=== PATIENT | female | born 1985 | race African-American/Black ===

== ENCOUNTER 2018-03-25 12:36 | Emergency (ER) | payer OTHER ==
[~2018-03-25] VITALS: Ht 165.1 cm; Wt 65.8 kg
[2018-03-25 13:02] VITALS: BP 127/81
[2018-03-25] MEDS ORDERED: Fleet's Enema 133ml RECTAL ONE (13:15)
[2018-03-25] MEDS ORDERED: Ketorolac 30mg Inj IV ONE (13:30)
[2018-03-25 14:00] LABS: BASOPHILS % (AUTO) 0.5 % (0.0-2.0); HEMATOCRIT 39.5 % (37.0-47.0); HEMOGLOBIN 12.8 G/DL (12.0-16.0); LYMPHOCYTES % (AUTO) 17.4 % (20.0-45.0); MEAN CORPUSCULAR VOLUME 90 FL (80-99); NEUTROPHILS % (AUTO) 73.1 % (45.0-75.0); PLATELET COUNT 307 K/UL (150-450); RED BLOOD COUNT 4.38 M/UL (4.20-5.40); RED CELL DISTRIBUTION WIDTH 11.8 % (11.6-14.8); WHITE BLOOD COUNT 10.4 K/UL (4.8-10.8)
[2018-03-25 14:34] LABS: ANION GAP 10 mmol/L (5-15); BLOOD UREA NITROGEN 8 mg/dL (7-18); CALCIUM 9.4 MG/DL (8.5-10.1); CARBON DIOXIDE 26 MMOL/L (21-32); CHLORIDE 102 MMOL/L (98-107); CREATININE 0.9 MG/DL (0.55-1.30); POTASSIUM 3.9 MMOL/L (3.5-5.1); SODIUM 138 MMOL/L (136-145)
[2018-03-25 14:38] LABS: ALANINE AMINOTRANSFERASE 14 U/L (12-78); ALBUMIN 3.9 G/DL (3.4-5.0); ALBUMIN/GLOBULIN RATIO 0.8 (1.0-2.7); ALKALINE PHOSPHATASE 56 U/L (46-116); ASPARTATE AMINO TRANSFERASE 10 U/L (15-37); BILIRUBIN,TOTAL 0.4 MG/DL (0.2-1.0)
--- NOTE | 2018-03-25 14:51 | Emergency Room Report ---
History of Present Illness General Chief Complaint: General Complaint Source: Patient Present Illness HPI 32 YO Female presents to the ED w. 8/10 in severity abdominal pain and bloating. pt. reports constipation x 4 days. with new onset nausea today. pt. denies vomiting. Pt. denies previous hx of constipation in the past or recently taking pain medications. pt. states she was seen at urgent care yesterday and was given several rectal Suppositories in addition to Mylanta. Patient reports no relief of her symptoms. Denies , dysuria or hematuria. Patient states that she now has difficult time urinating.Denies CP, Palpitations, LOC, AMS, dizziness, Changes in Vision, Sensation, paresthesias, or a sudden severe headache. Allergies: Coded Allergies: No Known Allergies (Unverified , 03/25/18) Patient History Past Medical History: see triage record Past Surgical History: none Pertinent Family History: none Reviewed Nursing Documentation: PMH: Agreed; PSxH: Agreed Nursing Documentation-PMH Past Medical History: No Stated History Review of Systems All Other Systems: negative except mentioned in HPI Physical Exam Vital Signs Date Time Temp Pulse Resp B/P (MAP) Pulse Ox O2 Delivery O2 Flow Rate FiO2 03/25/18 12:46 98.9 107 20 127/81 99 Room Air 99.0 Sp02 EP Interpretation: reviewed, normal General Appearance: no apparent distress, alert, GCS 15, non-toxic Head: normocephalic, atraumatic Eyes: bilateral eye normal inspection, bilateral eye PERRL ENT: hearing grossly normal, normal voice Neck: full range of motion Respiratory: chest non-tender, lungs clear, normal breath sounds, speaking full sentences Cardiovascular #1: regular rate, rhythm Gastrointestinal: normal bowel sounds - hypoactive BS in all four quadrants, non tender, soft, no peritonitis, distended - mild LLQ Rectal: deferred Genitourinary: normal inspection Musculoskeletal: back normal, gait/station normal, normal range of motion, non- tender Neurologic: alert, oriented x3, responsive, motor strength/tone normal, sensory intact, speech normal, grossly normal Psychiatric: judgement/insight normal Skin: normal color, no rash, warm/dry, well hydrated Lymphatic: no adenopathy Medical Decision Making PA Attestation Dr. Walker is my supervising Physician whom patient management has been discussed with. Diagnostic Impression: Primary Impression: Colitis, acute Additional Impression: Obstipation ER Course Pt. presents to the ED c/o constipation and generalized abdominal pain x 4 days described as progressive and bloating . last bowel movement was (4 days ago). Pt. reports no flatulence. Denies . Ddx considered but are not limited to constipation , appendicitis, SBO, ectopic , PID, tubo-ovarian abscess. Vital signs: are WNL, pt. is afebrile H&PE are most consistent with constipation. bowl sounds are normo active. ORDERS: -CBC, CMP, LIPASE: Unremarkable. - UA: unremarkable Serum Hcg: Negative ED INTERVENTIONS: -NS Iv Bolus x 2 - Toradol IV - Fleet's enema -Lactulose PO Pt. was able to have bowel movement, she reports that she feels much better. d/ w pt. the results of her CT scan and labs. d/w her that I will be d/c'ing her with two oral abx. discussed the side effects of abx highlighting possible tendon rupture injuries, and advised to limit physical activities for several weeks after finishing. Pt. requests to go home despite recommendations to wait until she has an additional BM or can pass gas. Re-examination abdomen is not as distended as previously palpated on the left lower quadrant. Pt. was given strict ED return precautions to return promptly to the ED if her symptoms worsen or new symptoms occur. DISCHARGE: At this time pt. is stable for d/c to home. Will provide printed patient care instructions, and any necessary prescriptions. Care plan and follow up instructions have been discussed with the patient prior to discharge. Labs Test 03/25/18 13:50 White Blood Count 10.4 K/UL (4.8-10.8) Red Blood Count 4.38 M/UL (4.20-5.40) Hemoglobin 12.8 G/DL (12.0-16.0) Hematocrit 39.5 % (37.0-47.0) Mean Corpuscular Volume 90 FL (80-99) Mean Corpuscular Hemoglobin 29.3 PG (27.0-31.0) Mean Corpuscular Hemoglobin Concent 32.5 G/DL (32.0-36.0) Red Cell Distribution Width 11.8 % (11.6-14.8) Platelet Count 307 K/UL (150-450) Mean Platelet Volume 7.6 FL (6.5-10.1) Neutrophils (%) (Auto) 73.1 % (45.0-75.0) Lymphocytes (%) (Auto) 17.4 % (20.0-45.0) Monocytes (%) (Auto) 8.0 % (1.0-10.0) Eosinophils (%) (Auto) 1.0 % (0.0-3.0) Basophils (%) (Auto) 0.5 % (0.0-2.0) Sodium Level 138 MMOL/L (136-145) Potassium Level 3.9 MMOL/L (3.5-5.1) Chloride Level 102 MMOL/L (98-107) Carbon Dioxide Level 26 MMOL/L (21-32) Anion Gap 10 mmol/L (5-15) Blood Urea Nitrogen 8 mg/dL (7-18) Creatinine 0.9 MG/DL (0.55-1.30) Estimat Glomerular Filtration Rate > 60 mL/min (>60) Glucose Level 112 MG/DL (74-106) Calcium Level 9.4 MG/DL (8.5-10.1) Total Bilirubin 0.4 MG/DL (0.2-1.0) Aspartate Amino Transf (AST/SGOT) 10 U/L (15-37) Alanine Aminotransferase (ALT/SGPT) 14 U/L (12-78) Alkaline Phosphatase 56 U/L (46-116) Total Protein 8.7 G/DL (6.4-8.2) Albumin 3.9 G/DL (3.4-5.0) Globulin 4.8 g/dL Albumin/Globulin Ratio 0.8 (1.0-2.7) Lipase 99 U/L (73-393) Human Chorionic Gonadotropin, Qual Negative CT/MRI/US Diagnostic Results CT/MRI/US Diagnostic Results : Impression "8 cm fecal distended rectum. Thickening of the rectal wall and perirectal stranding. Findings likely Fecal impaction and proctitis. Suspicious foci of pneumatosis may be early stercoral colitis. Moderate to large stool load throughout the remainder of the colon likely constipation. Possible obstipation. Normal appendix. No obstructive uropathy. Uterus and adnexa unremarkable. Liver, gallbladder, pancreas, and unremarkable. "Per official radiology report- Please see report for specific details. Last Vital Signs Date Time Temp Pulse Resp B/P (MAP) Pulse Ox O2 Delivery O2 Flow Rate FiO2 03/25/18 13:57 99.0 03/25/18 13:02 107 20 127/81 99 Room Air Status: improved Disposition: HOME, SELF-CARE Condition: Stable Scripts Lactulose (LACTULOSE*) 20 Gm/30 Ml Solution 20 ML ORAL BID for 3 Days, #120 ML 0 Refills Prov: Margaret Lawson 03/25/18 Docusate Sodium* (COLACE*) 100 Mg Capsule 100 MG ORAL THREE TIMES A DAY, #30 CAP Prov: Margaret Lawson 03/25/18 Metronidazole* (FLAGYL*) 500 Mg Tablet 500 MG ORAL BID for 7 Days, #13 TAB 0 Refills * known to increase risk of achilles tendon rupture in athelets. Prov: Margaret Lawson 03/25/18 Ciprofloxacin* (CIPRO*) 500 Mg Tablet 500 MG PO BID for 7 Days, #13 TAB Prov: Margaret Lawson 03/25/18 Referrals: NON PHYSICIAN (PCP) Departure Forms: Return to Work Return to Work Date: March 27, 2018 Work Restrictions: None Return to Full Activity: March 27, 2018 Patient Instructions: Constipation, Adult Additional Instructions: Take medications as directed. Follow up with a Primary Care Provider within 3 days, even if your symptoms have resolved. --Please review list of primary care clinics, if you do not already have a primary care provider Return sooner to ED if new symptoms occur, or current symptoms become worse. - Please note that this Emergency Department Report was dictated using [employer] binder technology software, occasionally this can lead to erroneous entry secondary to interpretation by the dictation equipment. Margaret Lawson March 25, 2018 14:51
[2018-03-25 15:00] VITALS: BP 121/78
[2018-03-25] MEDS ORDERED: Lactulose 20gm/30ml UDC ORAL ONE (16:00)
[2018-03-25] MEDS ORDERED: metroNIDAZOLE 500mg tab ORAL ONE (18:00)
[2018-03-25] MEDS ORDERED: Ciprofloxacin 500mg tab ORAL ONE (18:00)
[2018-03-25] MEDS ORDERED: CIPRO500 MG PO (18:04)
[2018-03-25] MEDS ORDERED: METRONIDAZOLE500 MG ORAL (18:04)
[2018-03-25] MEDS ORDERED: LACTULOSE20 GM/301 ORAL (18:04)
[2018-03-25] MEDS ORDERED: COLACE100 MG ORAL (18:04)
[2018-03-25 18:31] VITALS: BP 119/72
--- NOTE | 2018-03-26 09:53 | Diagnostic Imaging Report ---
Indication: Abdominal pain Technique: Continuous helical transaxial imaging of the abdomen and pelvis was obtained from the lung bases to the pubic symphysis. No intravenous contrast was administered. Coronal 2-D reformats were also obtained. Automatic Exposure Control was utilized. Total Dose length Product (DLP): 718.[address] Dose Index Volume (CTDIvol): 13.68 mGy Comparison: none Findings: There is moderate fecal impaction with distention of the rectum and thickening of the wall the rectum with perirectal soft tissue stranding due to inflammation. Transverse diameter of the rectum is about 8 cm. The appendix is seen and normal. There is some slightly increased density in a generalized fashion within the renal medulla. 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 No renal stones identified. One example would be medullary sponge kidney. Differential diagnosis is large. There is suggestion of stones versus sludge in the gallbladder. There is no free fluid or free air. IMPRESSION: Fecal impaction as described above. 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 Correlate clinically. [facility] has communicated the preliminary results to the Emergency Department. Their findings are largely concordant with this report. The CT scanner at [facility] is accredited by the [employer] [place] [employer] and the scans are performed using dose optimization techniques as appropriate to a performed exam including Automatic Exposure control.
== END 2018-03-25 18:32 | disposition home or self-care (01) ==
LOC: EMR 12:59
DX: K52.9 Noninfective gastroenteritis and colitis, unspecified (principal); K59.00 Constipation, unspecified
CPT/HCPCS: 36415; 74176; 80053; 83690; 84703; 85025; 96360; 96374; 99284; J1885

== ENCOUNTER 2018-11-21 18:47 | Emergency (ER) | payer OTHER ==
[~2018-11-21] VITALS: Ht 165.1 cm; Wt 63.5 kg
[~2018-11-21 18:47] MED LIST: CIPRO500 MG PO; COLACE100 MG ORAL; LACTULOSE20 GM/301 ORAL; METRONIDAZOLE500 MG ORAL
[2018-11-21 19:00] VITALS: BP 127/75
--- NOTE | 2018-11-21 19:00 | NUR ---
ED Nurse Note: Pt walked in ER and c/o fall ans slip today. Pt R leg,hand pain level 7~8/10. No open wound or s/s of fracture. Pt is AO x 4times, VSS, on room air no distress. ERMD seen Pt at bedside.
--- NOTE | 2018-11-21 19:38 | NUR ---
ED Nurse Note: X ray at bedside.
--- NOTE | 2018-11-21 19:55 | Emergency Room Report ---
History of Present Illness General Chief Complaint: Multiple Trauma/Fall Present Illness HPI 33-year-old female presents to the emergency department complaining of 8 out of 10 in severity pain to the right knee as well as some right hip tenderness and left fifth digit pain. Patient reports that she had a mechanical slip and fall at work. She states she did bump her head however she did not lose consciousness and does not have much tenderness. Patient denies taking blood thinning medications she denies open wounds. Patient denies midline neck or back pain. Denies paresthesias, weakness or inability to bear weight completely. She denies previous injuries to these extremities. (Margaret Lawson) Allergies: Coded Allergies: No Known Allergies (Unverified , 03/25/18) Patient History Past Medical History: see triage record Last Menstrual Period: 11/13/18 Now: No : 0 Para: 0 (Margaret Lawson) Nursing Documentation-[facility] Past Medical History: No Stated History (Margaret Lawson) Review of Systems All Other Systems: negative except mentioned in HPI (Margaret Lawson) Physical Exam Vital Signs Date Time Temp Pulse Resp B/P (MAP) Pulse Ox O2 Delivery O2 Flow Rate FiO2 11/21/18 18:59 98.2 84 18 117/5 99 Room Air Sp02 EP Interpretation: reviewed, normal General Appearance: no apparent distress, alert, GCS 15, non-toxic Head: normocephalic, atraumatic Eyes: bilateral eye normal inspection, bilateral eye PERRL ENT: hearing grossly normal, normal voice Neck: full range of motion, no bony tend Respiratory: chest non-tender, lungs clear, normal breath sounds, speaking full sentences Cardiovascular #1: regular rate, rhythm, normal capillary refill Cardiovascular #2: 2+ dorsalis pedis (R) - posterior tib. , 2+ dorsalis pedis ( L) - posterior tib. Musculoskeletal: back normal, gait/station normal, normal range of motion, tender - Tenderness to the right knee, mild swelling, pain with our OM however full are OM, no increased laxity and negative anterior and posterior drawer signs. No obvious deformities of the knee. Tenderness to palpation to the lateral aspect of the left fifth digit no obvious deformity no obvious swelling no erythema bruising or inability to have full range of motion. Pt. is NVI Neurologic: alert, oriented x3, responsive, motor strength/tone normal, sensory intact, speech normal, grossly normal Psychiatric: judgement/insight normal Skin: normal color, no rash, warm/dry, well hydrated Lymphatic: no adenopathy (Margaret Lawson) Medical Decision Making PA Attestation Dr. Simmons is my supervising Physician whom patient management has been discussed with. (Margaret Lawson) Diagnostic Impression: Primary Impression: Knee sprain Qualified Codes: S83.91XA - Sprain of unspecified site of right knee, initial encounter Additional Impression: Contusion of multiple sites ER Course 33-year-old female presents to the emergency department complaining of 8 out of 10 in severity pain to the right knee as well as some right hip tenderness and left fifth digit pain. Patient reports that she had a mechanical slip and fall at work. She states she did bump her head however she did not lose consciousness and does not have much tenderness. Patient denies taking blood thinning medications she denies open wounds. Patient denies midline neck or back pain. Denies paresthesias, weakness or inability to bear weight completely. She denies previous injuries to these extremities. Ddx considered but are not limited to Fracture, dislocation, contusion, Sprain/ Strain/Spasm. Vital signs: are WNL, pt. is afebrile H&PE are most consistent with musculoskeletal injury will perform imaging to r/ o fractures/dislocations. ORDERS: - X-rays Right Knee 3 views, and Left hand 3 views - negative for fx, Dislocation, or significant soft tissue injury, per preliminary read in ED, and signed by ANABELA Lawson, my supervising physician has reviewed, and agrees with my interpretation. ED INTERVENTIONS: - IBU 600mg PO - Sriram wrap applied by emergency medical technician basic. Pt. remains neurovascularly intact. -Patient is provided with crutches and instructed on their use DISCHARGE: At this time pt. is stable for d/c to home. Will provide printed patient care instructions, and any necessary prescriptions. Care plan and follow up instructions have been discussed with the patient prior to discharge. (Margaret Lawson) Other X-Ray Diagnostic Results Other X-Ray Diagnostic Results #1: X-Ray ordered: Right Knee # of Views/Limited Vs Complete: 3 View Indication: Pain EP Interpretation: Yes PA Xray: Interpretation reviewed, by supervising MD, and agrees with findings. Interpretation: no dislocation, no soft tissue swelling, no fractures Impression: No acute disease Electronically Signed by: Margaret Lawson PA-C Other X-Ray Diagnostic Results #2: X-Ray ordered: Left Hand # of Views/Limited Vs Complete: 3 View Indication: Pain EP Interpretation: Yes PA Xray: Interpretation reviewed, by supervising MD, and agrees with findings. Interpretation: no dislocation, no soft tissue swelling, no fractures Impression: No acute disease Electronically Signed by: Margaret Lawson PA-C (Margaret Lawson) Other X-Ray Diagnostic Results : Electronically Signed by: Alberto Helms documentation of Xray reviewed by me and is accurate, Bennett Simmons MD (Bennett Simmons MD) Last Vital Signs Date Time Temp Pulse Resp B/P (MAP) Pulse Ox O2 Delivery O2 Flow Rate FiO2 11/21/18 18:59 98.2 84 18 117/5 99 Room Air Status: unchanged (Margaret Lawson) Disposition: HOME, SELF-CARE Condition: Stable Scripts Ibuprofen* (MOTRIN*) 600 Mg Tablet 600 MG ORAL THREE TIMES A DAY, #30 TAB 0 Refills Prov: Margaret Lawson 11/21/18 Departure Forms: Return to Work Return to Work Date: Nov 25, 2018 Work Restrictions: No Heavy Lifting, No Prolonged Standing Other Restrictions: light duty. May return Sooner if Symptoms have resolved. Return to Full Activity: Nov 28, 2018 Patient Instructions: Contusion, Guyp-pe-Yxow, Knee Sprain Additional Instructions: Take medications as directed. Follow up with a Primary Care Provider in 3-5 days, even if your symptoms have resolved. --Please review list of primary care clinics, if you do not already have a primary care provider Return sooner to ED if new symptoms occur, or current symptoms become worse. - Please note that this Emergency Department Report was dictated using [employer] cleaner technology software, occasionally this can lead to erroneous entry secondary to interpretation by the dictation equipment. Margaret Lawson Nov 21, 2018 19:55 Bennett Simmons MD Nov 24, 2018 02:03
[2018-11-21] MEDS ORDERED: IBUPROFEN600 MG ORAL (19:59)
[2018-11-21 20:25] VITALS: BP 124/79
--- NOTE | 2018-11-21 20:25 | NUR ---
ED Nurse Note: Pt cleared DC by NADIA. Pt is AO x 4times, VSS, on room air no distress. Belongings given to Pt. DC and meds instructions given to Pt, Pt understood well. ID bend removed. Pt walkled out unit with crutches. Pt's friend will poultry picker Pt later in waiting room.
--- NOTE | 2018-11-22 12:00 | Diagnostic Imaging Report ---
Indication: left hand pain. Findings: 3 views of the left hand were obtained. Normal alignment is demonstrated. No acute fractures, erosions, or periosteal reaction are seen. Soft tissues are unremarkable. Impression: No acute findings.
--- NOTE | 2018-11-22 12:00 | Diagnostic Imaging Report ---
Indication: Knee Pain 3 views of the left knee were obtained. Findings: No acute fracture, malalignment, or joint effusion are identified. Joint space is relatively well-maintained. Impression: Negative for acute injury
[2019-01-02] MEDS ORDERED: BACTRIM DS TAB1 EAC1 ORAL (20:25)
[2019-01-02] MEDS ORDERED: LACTULOSE20 GM/301 ORAL (20:25)
[2019-01-02] MEDS ORDERED: TYLENOL EXTRA500 MG ORAL (20:25)
== END 2018-11-21 20:25 | disposition home or self-care (01) ==
LOC: EMR 19:18
DX: S83.91XA Sprain of unspecified site of right knee, initial encounter (principal); T14.8XXA Other injury of unspecified body region, initial encounter; W01.0XXA Fall on same level from slipping, tripping and stumbling without subsequent striking against object, initial encounter; Y92.89 Other specified places as the place of occurrence of the external cause; M79.645 Pain in left finger(s)
CPT/HCPCS: 99284

== ENCOUNTER 2020-05-16 09:34 | Emergency (ER) | payer OTHER ==
[~2020-05-16] VITALS: Ht 167.6 cm; Wt 65.8 kg
[~2020-05-16 09:34] MED LIST changes: +BACTRIM DS TAB1 EAC1 ORAL; +IBUPROFEN600 MG ORAL; +TYLENOL EXTRA500 MG ORAL
--- NOTE | 2020-05-16 09:51 | NUR ---
ED Nurse Note: Patient walked into ED from home c/o vaginal bleeding that started this AM. Patient states she is about 6-7 weeks , and has been prescribed vaginal metronidazole for a bacterial infection. Patient states she had some light spotting this AM that became heavier, dark brown. Patient denies any recent fall or trauma. Patient AxO x 4.
--- NOTE | 2020-05-16 09:54 | Emergency Room Report ---
History of Present Illness General Chief Complaint: Complications Source: Patient Present Illness HPI Patient is a 34-year-old female G1, P0 at approximately 6 to 7 weeks . Had presented for increased vaginal bleeding. Reports having recently been using MetroGel for bacterial vaginosis. Denies any pain. Reports having increased bleeding this morning. Denies any abdominal cramping. Denies any significant vomiting. She is taking vitamins. She is followed by . Denies any fever or urinary symptoms. Allergies: Coded Allergies: No Known Allergies (Unverified , 03/25/18) COVID-19 Screening Contact w/high risk pt: No Experienced COVID-19 symptoms?: No COVID-19 Testing performed GUEST SERVICES DIRECTOR: No Patient History Past Medical History: see triage record Last Menstrual Period: 04/07/20 Now: Yes : 1 Para: 0 Reviewed Nursing Documentation: PMH: Agreed; PSxH: Agreed Nursing Documentation-PMH Past Medical History: No Stated History Review of Systems All Other Systems: negative except mentioned in HPI Physical Exam Vital Signs Date Time Temp Pulse Resp B/P (MAP) Pulse Ox O2 Delivery O2 Flow Rate FiO2 05/16/20 09:39 99.3 105 18 122/74 (90) 98 Room Air Sp02 EP Interpretation: reviewed, normal General Appearance: normal inspection, well appearing, no apparent distress, alert, GCS 15 Head: atraumatic ENT: normal ENT inspection, hearing grossly normal, normal voice Neck: normal inspection, full range of motion, supple, no bony tend Respiratory: normal inspection, lungs clear, normal breath sounds, no respiratory distress, no retraction, no wheezing Cardiovascular #1: regular rate, rhythm, no edema Gastrointestinal: normal inspection, normal bowel sounds, non tender, soft, no guarding, no hernia Genitourinary: no CVA tenderness Musculoskeletal: normal inspection, back normal, normal range of motion Neurologic: alert, motor strength/tone normal, glove operator III-XII nml as tested, oriented x3, responsive, speech normal, normal inspection Psychiatric: normal inspection, judgement/insight normal, mood/affect normal Medical Decision Making Diagnostic Impression: Primary Impression: Complication of Additional Impressions: Threatened Subchorionic hemorrhage in first trimester ER Course Patient is a for vaginal bleeding. Differential diagnosis included was not limited to incomplete , ectopic , a completed , threatened among others.Because of complexity of patient's case laboratory testing and imaging studies were ordered.Laboratory testing showed no evidence of significant anemia patient was Rh+. Patient's bleeding appears to be somewhat related to recent use of intravaginal cream and patient was advised to discontinue use of this until cleared by her physician to do so. Patient does not appear to have any evidence of significant bleeding at this time. Patient was advised to return if she began having increased bleeding dizziness or other concerns. Labs Test 05/16/20 10:00 05/16/20 10:29 White Blood Count 6.0 K/UL (4.8-10.8) Red Blood Count 4.28 M/UL (4.20-5.40) Hemoglobin 12.8 G/DL (12.0-16.0) Hematocrit 40.4 % (37.0-47.0) Mean Corpuscular Volume 94 FL (80-99) Mean Corpuscular Hemoglobin 29.9 PG (27.0-31.0) Mean Corpuscular Hemoglobin Concent 31.7 G/DL (32.0-36.0) Red Cell Distribution Width 11.6 % (11.6-14.8) Platelet Count 294 K/UL (150-450) Mean Platelet Volume 6.7 FL (6.5-10.1) Neutrophils (%) (Auto) 54.9 % (45.0-75.0) Lymphocytes (%) (Auto) 35.4 % (20.0-45.0) Monocytes (%) (Auto) 7.1 % (1.0-10.0) Eosinophils (%) (Auto) 1.6 % (0.0-3.0) Basophils (%) (Auto) 0.9 % (0.0-2.0) Prothrombin Time 10.7 SEC (9.30-11.50) Prothromb Time International Ratio 1.0 (0.9-1.1) Activated Partial Thromboplast Time 26 SEC (23-33) Sodium Level 137 MMOL/L (136-145) Potassium Level 3.9 MMOL/L (3.5-5.1) Chloride Level 101 MMOL/L (98-107) Carbon Dioxide Level 26 MMOL/L (21-32) Anion Gap 10 mmol/L (5-15) Blood Urea Nitrogen 9 mg/dL (7-18) Creatinine 0.8 MG/DL (0.55-1.30) Estimat Glomerular Filtration Rate > 60 mL/min (>60) Glucose Level 108 MG/DL (74-106) Calcium Level 9.0 MG/DL (8.5-10.1) Total Bilirubin 0.4 MG/DL (0.2-1.0) Aspartate Amino Transf (AST/SGOT) 13 U/L (15-37) Alanine Aminotransferase (ALT/SGPT) 15 U/L (12-78) Alkaline Phosphatase 53 U/L (46-116) Total Protein 8.7 G/DL (6.4-8.2) Albumin 4.6 G/DL (3.4-5.0) Globulin 4.1 g/dL Albumin/Globulin Ratio 1.1 (1.0-2.7) Lipase 119 U/L (73-393) Urine Color Yellow Urine Appearance Clear Urine pH 6.5 (4.5-8.0) Urine Specific Calvin 1.010 (1.005-1.035) Urine Protein 1+ (NEGATIVE) Urine Glucose (UA) Negative (NEGATIVE) Urine Ketones Negative (NEGATIVE) Urine Blood 5+ (NEGATIVE) Urine Nitrite Negative (NEGATIVE) Urine Bilirubin Negative (NEGATIVE) Urine Urobilinogen Normal MG/DL (0.0-1.0) Urine Leukocyte Esterase 1+ (NEGATIVE) Urine RBC 5-10 /HPF (0 - 2) Urine WBC 0-2 /HPF (0 - 2) Urine Squamous Epithelial Cells Moderate /LPF (NONE/OCC) Urine Bacteria Few /HPF (NONE) Urine Mucus Few /LPF (NONE/OCC) Last Vital Signs Date Time Temp Pulse Resp B/P (MAP) Pulse Ox O2 Delivery O2 Flow Rate FiO2 05/16/20 09:39 99.3 105 18 122/74 (90) 98 Room Air Status: improved Disposition: HOME, SELF-CARE Condition: Stable Ramesh Walker MD May 16, 2020 09:54
[2020-05-16 09:55] VITALS: BP 122/74
--- NOTE | 2020-05-16 09:55 | NUR ---
ED Nurse Note: Dr. Walker at bedside.
--- NOTE | 2020-05-16 09:58 | NUR ---
ED Nurse Note: 20 g IV started in right AC, blood collected and sent to lab.
--- NOTE | 2020-05-16 10:05 | NUR ---
ED Nurse Note: US at bedside.
[2020-05-16 10:18] LABS: BASOPHILS % (AUTO) 0.9 % (0.0-2.0); EOSINOPHILS % (AUTO) 1.6 % (0.0-3.0); HEMATOCRIT 40.4 % (37.0-47.0); HEMOGLOBIN 12.8 G/DL (12.0-16.0); LYMPHOCYTES % (AUTO) 35.4 % (20.0-45.0); MEAN CORPUSCULAR VOLUME 94 FL (80-99); MONOCYTES % (AUTO) 7.1 % (1.0-10.0); NEUTROPHILS % (AUTO) 54.9 % (45.0-75.0); PLATELET COUNT 294 K/UL (150-450); RED BLOOD COUNT 4.28 M/UL (4.20-5.40); RED CELL DISTRIBUTION WIDTH 11.6 % (11.6-14.8)
[2020-05-16 10:21] LABS: ANION GAP 10 mmol/L (5-15); BLOOD UREA NITROGEN 9 mg/dL (7-18); CARBON DIOXIDE 26 MMOL/L (21-32); CHLORIDE 101 MMOL/L (98-107); CREATININE 0.8 MG/DL (0.55-1.30); POTASSIUM 3.9 MMOL/L (3.5-5.1); SODIUM 137 MMOL/L (136-145)
[2020-05-16 10:29] LABS: ALANINE AMINOTRANSFERASE 15 U/L (12-78); ALBUMIN 4.6 G/DL (3.4-5.0); ALBUMIN/GLOBULIN RATIO 1.1 (1.0-2.7); ALKALINE PHOSPHATASE 53 U/L (46-116); ASPARTATE AMINO TRANSFERASE 13 U/L (15-37); BILIRUBIN,TOTAL 0.4 MG/DL (0.2-1.0)
--- NOTE | 2020-05-16 10:30 | NUR ---
ED Nurse Note: Urine specimen collected and sent to lab
[2020-05-16 10:44] LABS: APPEARANCE,URINE CLEAR; BILIRUBIN, URINE NEGATIVE (NEGATIVE); GLUCOSE, URINE (UA) NEGATIVE (NEGATIVE); KETONES,URINE NEGATIVE (NEGATIVE); LEUKOCYTE ESTERASE ,URINE 1+ (NEGATIVE); NITRITE,URINE NEGATIVE (NEGATIVE); PH,URINE 6.5 (4.5-8.0); PROTEIN,URINE 1+ (NEGATIVE); UROBILINOGEN,URINE NORMAL MG/DL (0.0-1.0)
[2020-05-16 10:48] LABS: COLOR,URINE YELLOW
--- NOTE | 2020-05-16 10:50 | NUR ---
ED Nurse Note: Dr. Walker at bedside.
--- NOTE | 2020-05-16 11:03 | Diagnostic Imaging Report ---
EXAM: US First Trimester , Transabdominal CLINICAL HISTORY: ABD PAIN TECHNIQUE: Real-time transabdominal obstetrical ultrasound of the maternal pelvis and a first trimester with image documentation. COMPARISON: None FINDINGS: Uterus: Measures 6.9 x 4.1 x 4.7 cm. Gestational sac identified within the endometrial cavity, with mean sac diameter measuring 1.19 cm. Probable subarachnoid hemorrhage noted. No pole or yolk sac identified on this exam. Cervix is long and closed. Placenta/amniotic fluid: Cannot be adequately evaluated due to the early gestational age. Ovaries: The ovaries are not visualized due to overlying bowel gas. Other: No free fluid is identified. No adnexal mass. Average ultrasound age: 5 weeks 2 days IMPRESSION: 1. Intrauterine gestational sac. No pole or yolk sac identified on this exam. Findings could be due to early stage of . Failed early not excluded. Please correlate with serial beta-hCG measurements and short-term follow-up exam if clinically indicated. 2. Probable subchorionic hemorrhage.
[2020-05-16 11:40] VITALS: BP 120/73
--- NOTE | 2020-05-16 11:40 | NUR ---
ER DISCHARGE NOTE: Patient is cleared to be discharged per ERMD, pt is aox4, on room air, with stable vital signs. pt was given dc and prescription instructions, pt was able to verbalize understanding, pt id band and iv site removed without complications. pt is able to ambulate with steady gait. pt took all belongings.
== END 2020-05-16 11:40 | disposition home or self-care (01) ==
LOC: EMR 09:56
DX: O20.0 Threatened abortion (principal); O20.9 Hemorrhage in early pregnancy, unspecified; Z3A.01 Less than 8 weeks gestation of pregnancy
CPT/HCPCS: 36415; 76801; 76817; 80053; 81003; 83690; 84702; 85025; 85610; 85730; 86900; 86901; 96360; 99284